=== PATIENT | male | born 1995 | race Two or more races ===

== ENCOUNTER 2018-08-28 23:28 | Emergency (ER) | payer OTHER ==
[~2018-08-28] VITALS: Ht 177.8 cm; Wt 70.3 kg
[2018-08-29] MEDS ORDERED: DOLOGESIC 500-1 EACH PO (05:35)
== END 2018-08-29 05:47 ==
LOC: ER 23:28
DX: B34.8 Other viral infections of unspecified site (principal)